=== PATIENT | male | born 1970 | race Caucasian/White ===

== ENCOUNTER 2016-12-02 16:30 | Emergency (ER) | payer OTHER ==
[~2016-12-02] VITALS: Ht 185.4 cm; Wt 106.1 kg
--- NOTE | 2016-12-02 16:44 | ED CARDIAC/CP/PALPITATIONS ---
History of Present Illness General Chief Complaint: Chest Pain Stated Complaint: CP Source: patient, family Exam Limitations: no limitations Allergies Coded Allergies: NO KNOWN ALLERGIES (01/12/12) Triage Note: PT TO ED C/O N/D, CHEST PAIN STARTING 1 HOUR AGO. PT WAS AT WORK, AND WENT TO SEE THE MEDICAL TEAM. WAS ADVISED TO COME TO ED VIA AMBULANCE AND PT REFUSED. PT ARRIVES, PALE, SWEATY. STATES C/P IS 2/10. C/O NAUSEA AND "I JUST DON'T FEEL GOOD". EKG DONE, PT TAKEN TO ROOM 3 VIA STRETCHER. Triage Nurses Notes Reviewed? yes Onset: Abrupt Duration: hour(s): (SEVERAL HRS), worse persistent since (2 HRS) Timing: multiple episodes today Activities at Onset: NONE Aspirin Today: no aspirin today Associated Symptoms: DIZZINESS, NAUSEA, ROOM SPINNING, TINNITUS HPI: 46 year old male presents for chief complaint of dizziness and diarreha that started thismoning. 5-6 episodes. He went to medical at 2:45 pm and then he started to have left sidedc chest pressure. (DOMONIQUE OLSEN,CHAI) Vital Signs & Intake/Output Vital Signs & Intake/Output Vital Signs Date Time Temp Pulse Resp B/P B/P Pulse O2 O2 Flow FiO2 Mean Ox Delivery Rate 12/02 2136 98 20 113/66 98 Room Air 12/02 1932 100.1 100 18 113/55 95 Room Air 05/ 1635 98.1 99 20 138/83 96 Room Air ED Intake and Output 12/03 0000 05/ 1200 Intake Total 1000 Output Total Balance 1000 Intake, IV 1000 Patient 234 lb Weight Weight Reported by Patient Measurement Method Reconcile Medications Ascorbic Acid (Vitamin C) (Unknown Strength) TABLET (Unknown Dose) PO DAILY SUPPLEMENT (Reported) Diphenoxylate HCl/Atropine (Lomotil 2.5-0.025 MG Tablet) 2.5 MG-0.025 MG TABLET 1-2 TAB PO 4 TIMES/DAY PRN DIARRHEA TWENTY...[id number] Meclizine HCl 25 MG TABLET 1 TAB PO TIDPRN PRN VERTIGO/DIZZINESS Multivitamin (Multi-Day Vitamins) 1 EACH TABLET 1 TAB PO DAILY SUPPLEMENT ( Reported) Ondansetron (Zofran Odt) 4 MG TAB.RAPDIS 1 TAB SL TID PRN NAUSEA Oxycodone HCl/Acetaminophen (Percocet 5-325 MG Tablet) 5 MG-325 MG TABLET 0.5 TAB PO PRN PAIN (Reported) (RADHA OLSEN,STEPHEN Morgan) Past History Travel History Traveled to [place] past 21 day No Medical History Any Pertinent Medical History? see below for history Psychiatric: anxiety Tetanus Vaccine: 01/12/12 Surgical History Surgical History: rotator cuff surgery Psychosocial History What is your primary language Macanese Tobacco Use: Current Daily Use Daily Tobacco Use Amount/Type: => 5 Cigarettes daily ETOH Use: denies use Illicit Drug Use: denies illicit drug use Family History Comment: mother- valve replacement dad - stomach ca Hx Contributory? Yes (CHAI YOUSSEF MD) Review of Systems Review of Systems Constitutional: Denies: chills, fever. (CHAI YOUSSEF MD) Physical Exam Physical Exam General Appearance: well developed/nourished, alert, awake, anxious, mild distress, moderate distress Head: atraumatic, normal appearance Eyes: Bilateral: normal appearance, PERRL, EOMI. Ears, Nose, Throat: normal pharynx, normal ENT inspection, hearing grossly normal Cardiovascular: regular rate/rhythm Core Measures ACS in differential dx? Yes Severe Sepsis Present: No Septic Shock Present: No (CHAI YOUSSEF MD) Progress Differential Diagnosis: AMI, musculoskeletal pain, myocarditis, pancreatitis, pericarditis, unstable angina, CHOLECYSTITIS, ANXIETY, VERTIGO Initial ED EKG: NSR, LAFB Hand-Off Endorsed To: RADHA OLSEN,STEPHEN Morgan Endorsed Time: 1901 Pending: EKG, labs (CHAI YOUSSEF MD) Plan of Care: Orders Procedure Date/time Status TROPONIN LEVEL 12/02 2029 Complete EKG 12/02 2029 Active Telemetry/Apple Picker 12/02 1642 Active TROPONIN LEVEL 12/02 1642 Complete PARTIAL THROMBOPLASTIN TIME 12/02 164 Complete PROTHROMBIN TIME 12/02 164 Complete COMPREHENSIVE METABOLIC PANEL 12/02 1642 Complete CBC WITHOUT DIFFERENTIAL 12/02 1642 Complete EKG 12/02 163 Active Laboratory Tests 12/02/16 2011: Troponin I < 0.01 12/02/16 1648: Anion Gap 13, Estimated GFR > 60, BUN/Creatinine Ratio 13.8, Glucose 92, Calcium 9.1, Total Bilirubin 0.6, AST 32, ALT 64, Alkaline Phosphatase 75, Troponin I < 0.01, Total Protein 7.2, Albumin 4.6, Globulin 2.6, Albumin/Globulin Ratio 1.8, PT 11.0, INR 1.05, APTT 28, CBC w Diff NO MAN DIFF REQ, RBC 5.81, MCV 89.7, MCH 30.0, RDW 13.2, MPV 7.3 L, Gran % 85.8 H, Lymphocytes % 7.7 L, Monocytes % 4.4, Eosinophils % 1.7, Basophils % 0.4, Absolute Granulocytes 11.0 H, Absolute Lymphocytes 1.0 L, Absolute Monocytes 0.6, Absolute Eosinophils 0.2, Absolute Basophils 0.1, PUBS MCHC 33.4 12/02/16 1643: Methadone Screen Cancelled, Barbiturate Screen Cancelled, Ur Phencyclidine Scrn Cancelled, Amphetamines Screen Cancelled, U Benzodiazepines Scrn Cancelled, Urine Cocaine Screen Cancelled, Urine Cannabis Screen Cancelled 5:35 PM PATIENT FEELING SOMEWHAT BETTER. IV TYLENOL ORDERED FOR PERSISTENT HEADACHE. TROPONIN PENDING. (CHAI YOUSSEF MD) Departure Departure Disposition: STILL A PATIENT Referrals: FARHAD OLSEN,GRIS Eckert (PCP/Family) Departure Forms: Customer Survey General Discharge Information PA/CARRIAGE SETTER Co-Sign Statement Statement: ED Attending supervision documentation- [] I saw and evaluated the patient. I have also reviewed all the pertinent lab results and diagnostic results. I agree with the findings and the plan of care as documented in the PA's/CARRIAGE SETTER's documentation. [X] I have reviewed the ED Record and agree with the PA's/CARRIAGE SETTER's documentation. [] Additions or exceptions (if any) to the PAs/CARRIAGE SETTER's note and plan are summarized below: [] (CHAI YOUSSEF MD) Departure Condition: Stable Clinical Impression Primary Impression: Vertigo Secondary Impressions: Chest pain, Diarrhea Prescriptions: Current Visit Scripts Ondansetron (Zofran Odt) 1 TAB SL TID PRN NAUSEA #10 TAB Meclizine HCl 1 TAB PO TIDPRN PRN VERTIGO/DIZZINESS #30 TAB Ref 1 Diphenoxylate HCl/Atropine (Lomotil 2.5-0.025 MG Tablet) 1-2 TAB PO 4 TIMES/DAY PRN DIARRHEA #20 TAB TWENTY...[id number] Comments 12/02/16, 22:19pm... pt feeling better after supportive measures... ekg benign x 2 , trop neg x 2... pt with diarrhea... no abdominal pain, likely viral.... pt wishes to go home, has amubulated in ED. Will send home with meclizine, zofran, lomotil... close follow up advised. (RADHA OLSEN,STEPHEN Morgan) Critical Care Note Critical Care Note Critical Care Time: non-applicable (RADHA OLSEN,STEPHEN Morgan)
[2016-12-02] MEDS ORDERED: PERCOCET 5-3251 EACH PO (16:45)
[2016-12-02] MEDS ORDERED: VITAMIN C250 M3 PO (16:46)
[2016-12-02] MEDS ORDERED: MULTI-DAY VITA1 EACH PO (16:46)
[2016-12-02 17:08] LABS: ABSOLUTE BASOPHIL COUNT 0.1 /CUMM (0.0-0.2); ABSOLUTE EOSINOPHIL COUNT 0.2 /CUMM (0.0-0.7); ABSOLUTE MONOCYTE COUNT 0.6 /CUMM (0.10-0.60); BASOPHIL % 0.4 % (0.0-2.0); EOSINOPHIL % 1.7 % (0-5); HEMATOCRIT 52.2 % (42-52); MEAN CORPUSCULAR HGB CONC 33.4 G/DL (33.0-37.0); MEAN CORPUSCULAR VOLUME 89.7 FL (80.0-94.0); MEAN PLATELET VOLUME 7.3 FL (7.4-10.4); PLATELET COUNT 253 /CUMM (130-400); RBC DISTRIBUTION WIDTH 13.2 % (11.5-14.5); RED BLOOD CELL CT 5.81 /CUMM (4.70-6.10); WHITE BLOOD CELL COUNT 12.9 /CUMM (4.8-10.8)
[2016-12-02 17:09] LABS: GRANULOCYTE % 85.8 % (42.2-75.2)
[2016-12-02 17:14] LABS: PTT 28 SEC (25-37)
--- NOTE | 2016-12-02 18:53 | RADIOLOGY REPORT ---
EXAMINATION: XR PORTABLE CHEST CLINICAL INFORMATION: Chest pain. Evaluate mediastinum. COMPARISON: CT chest 12/10/2012. TECHNIQUE: Portable frontal view of the chest was obtained. FINDINGS: The lungs are well-expanded and clear without focal airspace consolidation. No pleural effusions or pneumothoraces are identified. Cardiomediastinal contours are within normal limits. Soft tissues are unremarkable. No acute osseous abnormality is identified. IMPRESSION: No acute pulmonary process. Cardiomediastinal contours are within normal limits. There is no widening of the mediastinum.
[2016-12-02 21:36] VITALS: BP 113/66
[2016-12-02] MEDS ORDERED: MECLIZINE HCL25 MG PO (22:17)
[2016-12-02] MEDS ORDERED: LOMOTIL 2.5-0.1 EACH PO (22:17)
[2016-12-02] MEDS ORDERED: ZOFRAN ODT4 M1 SL (22:17)
== END 2016-12-02 22:36 ==
LOC: ERH 16:30
PROVIDERS: Emergency Medicine
DX: R42 Dizziness and giddiness (principal); R07.9 Chest pain, unspecified; R19.7 Diarrhea, unspecified
CPT/HCPCS: 80307; 93005; 93010; 96374; 96375; J0131; J2405; J2765; J3360

== ENCOUNTER 2016-12-06 15:34 | Emergency (ER) | payer OTHER ==
[~2016-12-06] VITALS: Ht 185.4 cm; Wt 105.2 kg
[~2016-12-06 15:34] MED LIST: LOMOTIL 2.5-0.1 EACH PO; MECLIZINE HCL25 MG PO; MULTI-DAY VITA1 EACH PO; PERCOCET 5-3251 EACH PO; VITAMIN C250 M3 PO; ZOFRAN ODT4 M1 SL
[2016-12-06 15:54] LABS: ABSOLUTE BASOPHIL COUNT 0 /CUMM (0.0-0.2); ABSOLUTE EOSINOPHIL COUNT 0.6 /CUMM (0.0-0.7); ABSOLUTE GRANULOCYTE CT 5.2 /CUMM (1.4-6.5); ABSOLUTE LYMPH COUNT 2.3 /CUMM (1.2-3.4); ABSOLUTE MONOCYTE COUNT 0.8 /CUMM (0.10-0.60); BASOPHIL % 0.5 % (0.0-2.0); EOSINOPHIL % 6.6 % (0-5); GRANULOCYTE % 58.7 % (42.2-75.2); MEAN CORPUSCULAR HGB 30.4 PG (27.0-31.0); MEAN CORPUSCULAR HGB CONC 34.1 G/DL (33.0-37.0); MEAN CORPUSCULAR VOLUME 89.1 FL (80.0-94.0); MEAN PLATELET VOLUME 7.1 FL (7.4-10.4); PLATELET COUNT 262 /CUMM (130-400); RBC DISTRIBUTION WIDTH 13.1 % (11.5-14.5); RED BLOOD CELL CT 5.27 /CUMM (4.70-6.10); WHITE BLOOD CELL COUNT 8.9 /CUMM (4.8-10.8)
--- NOTE | 2016-12-06 16:14 | ED GENERAL ADULT ---
History of Present Illness General Chief Complaint: Nausea, Vomiting, Diarrhea Stated Complaint: DIARRHEA XS 5 DAYS Source: patient Exam Limitations: no limitations Vital Signs & Intake/Output Vital Signs & Intake/Output Vital Signs Date Time Temp Pulse Resp B/P B/P Pulse O2 O2 Flow FiO2 Mean Ox Delivery Rate 12/06 1643 Room Air 12/06 1543 97.8 80 16 118/75 97 Allergies Coded Allergies: NO KNOWN ALLERGIES (01/12/12) Reconcile Medications Ascorbic Acid (Vitamin C) (Unknown Strength) TABLET (Unknown Dose) PO DAILY SUPPLEMENT (Reported) Diphenoxylate HCl/Atropine (Lomotil 2.5-0.025 MG Tablet) 2.5 MG-0.025 MG TABLET 1-2 TAB PO 4 TIMES/DAY PRN DIARRHEA TWENTY...[id number] Meclizine HCl 25 MG TABLET 1 TAB PO TIDPRN PRN VERTIGO/DIZZINESS Multivitamin (Multi-Day Vitamins) 1 EACH TABLET 1 TAB PO DAILY SUPPLEMENT ( Reported) Ondansetron (Zofran Odt) 4 MG TAB.RAPDIS 1 TAB SL TID PRN NAUSEA Oxycodone HCl/Acetaminophen (Percocet 5-325 MG Tablet) 5 MG-325 MG TABLET 0.5 TAB PO PRN PAIN (Reported) Triage Note: PT WITH DIARRHEA FOR THE PAST 5 DAYS WITH NAUSEA. PT HAS BEEN TAKING MOTRIN FOR [place], WAS SEEN MONDAY FOR DIZZYNESS AND ANTIDIARRHEAL BUT NOTHING IS HELPING. PT HAS BEEN ABLE TO KEEP FLUIDS DOWN SINCE MONDAY Triage Nurses Notes Reviewed? yes Onset: Abrupt Duration: day(s): Timing: recent history HPI: 12/06/16 5 PM This is a 46-year-old male who presents to the emergency department complaining of diarrhea. The patient states that he was in his usual state of health until when he developed multiple episodes of watery diarrhea. He admits to abdominal cramping but denies abdominal pain. There is no fever. No one else at home is sick. There is no recent travel. There is no blood in the stool. The onset of the symptoms was abrupt, the duration has been since , the severity is significant; as his symptoms required him to come to the emergency department for care. Past History Travel History Traveled to [place] past 21 day No Medical History Any Pertinent Medical History? see below for history Psychiatric: anxiety Tetanus Vaccine: 01/12/12 Surgical History Surgical History: rotator cuff surgery Psychosocial History What is your primary language Kazakh Tobacco Use: Current Daily Use Daily Tobacco Use Amount/Type: => 5 Cigarettes daily ETOH Use: denies use Illicit Drug Use: denies illicit drug use Family History Hx Contributory? No Review of Systems Review of Systems Constitutional: Denies: fever. EENTM: Reports: no symptoms. Respiratory: Denies: short of breath. Cardiovascular: Denies: chest pain. GI: Denies: abdominal pain, bloody stool, vomiting. Genitourinary: Reports: no symptoms. Musculoskeletal: Reports: no symptoms. Skin: Denies: rash. Neurological/Psychological: Reports: headache. Hematologic/Endocrine: Denies: bruising, bleeding. Physical Exam Physical Exam General Appearance: well developed/nourished, alert, awake, anxious, mild distress Head: atraumatic, normal appearance Eyes: Bilateral: normal appearance, PERRL, EOMI. Ears, Nose, Throat: normal pharynx, normal ENT inspection Neck: normal inspection, supple, full range of motion Respiratory: normal breath sounds, chest non-tender, no respiratory distress Cardiovascular: regular rate/rhythm Peripheral Pulses: 4+ radial (R), 4+ radial (L) Gastrointestinal: soft, non-tender Back: normal range of motion Extremities: normal inspection, normal capillary refill, normal range of motion, no edema Neurologic/Psych: no motor/sensory deficits, awake, alert, oriented x 3 Skin: intact, normal color, warm/dry Core Measures ACS in differential dx? No CVA/TIA Diagnosis: No Severe Sepsis Present: No Septic Shock Present: No Progress Differential Diagnoses I considered the following diagnoses in my evaluation of the patient: [ Infectious diarrhea, viral syndrome, adverse drug reaction, Crohn's disease, inflammatory bowel disease, irritable bowel disease. Plan of Care: Orders Procedure Date/time Status COMPREHENSIVE METABOLIC PANEL 12/06 1544 Complete CBC WITHOUT DIFFERENTIAL 12/06 1544 Complete Current Medications Sig/Abby Start time Last Medication Dose Stop Time Status Admin Sodium Chloride 1,000 ML BOLUS ONE 12/06 1715 AC 12/06 (Normal Saline 0.9%) 12/06 1914 1657 Laboratory Tests 12/06/16 1545: Anion Gap 10, Estimated GFR > 60, BUN/Creatinine Ratio 11.3, Glucose 94, Calcium 9.0, Total Bilirubin 0.6, AST 44, ALT 75 H, Alkaline Phosphatase 56, Total Protein 6.7, Albumin 4.0, Globulin 2.7, Albumin/Globulin Ratio 1.5, CBC w Diff NO MAN DIFF REQ, RBC 5.27, MCV 89.1, MCH 30.4, RDW 13.1, MPV 7.1 L, Gran % 58.7 , Lymphocytes % 25.7, Monocytes % 8.5, Eosinophils % 6.6 H, Basophils % 0.5, Absolute Granulocytes 5.2, Absolute Lymphocytes 2.3, Absolute Monocytes 0.8 H, Absolute Eosinophils 0.6, Absolute Basophils 0, PUBS MCHC 34.1 Initial ED EKG: none Departure Departure Disposition: HOME OR SELF CARE Condition: Stable Clinical Impression Primary Impression: Diarrhea Referrals: FARHAD OLSEN,GRIS Eckert (PCP/Family) Departure Forms: Customer Survey General Discharge Information Critical Care Note Critical Care Note Critical Care Time: non-applicable
[2016-12-06 18:18] VITALS: BP 115/65
== END 2016-12-06 18:19 ==
LOC: ERH 15:34
PROVIDERS: Emergency Medicine
DX: R19.7 Diarrhea, unspecified (principal)